=== PATIENT | female | born 1980 | race Caucasian/White ===

== ENCOUNTER → 2017-12-16 | Outpatient (CLI) | payer OTHER ==
[~2017-12-16] MED LIST: ALBU90I INH; ALBU90OI INH; AMLO5; CIPR500 PO; LISHYD1012; METO100ER; NYQUIL; OTC COUGH MED; PRED20 PO
== END | disposition home or self-care (01) ==
LOC: LAB SHORT 17:31 → LAB EV 17:31
DX: N39.0 Urinary tract infection, site not specified (principal)
CPT/HCPCS: 87086

== ENCOUNTER 2018-10-30 18:22 | Emergency (ER) | payer OTHER ==
[~2018-10-30] VITALS: Ht 165.1 cm; Wt 113.4 kg
[2018-10-30 19:23] LABS: BASOPHILS ABSOLUTE AUTO 0.09 K/mm3 (0.00-0.23); BASOPHILS PERCENT AUTO 1 % (0-2); EOSINOPHILS ABSOLUTE AUTO 0.22 K/mm3 (0.00-0.68); EOSINOPHILS PERCENT AUTO 2 % (0-6); Hematocrit 45.7 % (33.0-51.0); IMMATURE GRAN ABSOLUTE AUTO 0.05 K/mm3 (0.00-0.10); IMMATURE GRAN PERCENT AUTO 0 % (0-1); LYMPHOCYTES ABSOLUTE AUTO 3.27 K/mm3 (0.84-5.20); LYMPHOCYTES PERCENT AUTO 24 % (21-46); MONOCYTES ABSOLUTE AUTO 1.35 K/mm3 (0.16-1.47); MONOCYTES PERCENT AUTO 10 % (4-13); Mean Corpuscular HGB 28.5 pg (26.0-34.0); Mean Corpuscular HGB Conc 32.8 g/dL (31.5-36.5); Mean Platelet Volume 9.6 fL (9.1-12.4); NEUTROPHILS ABSOLUTE AUTO 8.77 K/mm3 (1.96-9.15); NEUTROPHILS PERCENT AUTO 64 % (41-73); Platelet Count 366 K/mm3 (150-400); RDW Coefficient Variation 13.3 % (11.7-14.2); RDW Standard Deviation 42.2 fL (35.1-46.3); Red Blood Cell Count 5.26 M/mm3 (3.80-5.20); White Blood Cell Count 13.75 K/mm3 (4.00-11.30)
[2018-10-30 19:34] LABS: Mean Corpuscular Volume 87 fL (80-100)
[2018-10-30 19:37] LABS: Source, Urine Clean Catch
[2018-10-30 19:40] LABS: Alanine Aminotransfer (ALT/SGP 63 U/L (12-78); Albumin, Blood 4.1 g/dL (3.4-5.0); Alk Phos 75 U/L (50-136); Anion Gap 7 mmol/L (6-16); Aspartate Aminotrans (AST/SGOT 44 U/L (12-37); Bilirubin, Total 0.2 mg/dL (0.1-1.0); Blood Urea Nitrogen 8 mg/dL (8-24); Bun/Creatinine Ratio 13.4 (12.0-20.0); CO2, Blood 26 mmol/L (21-32); Calcium, Blood 9.5 mg/dL (8.5-10.1); Chloride, Blood 104 mmol/L (98-108); Globulin, Blood 4.2 g/dL (2.2-4.0); Glomerular Filtration Rate >60 (60-); Glucose, Blood 103 mg/dL (70-99); Potassium, Blood 4.1 mmol/L (3.5-5.5); Sodium, Blood 137 mmol/L (136-145); Total Protein, Blood 8.3 g/dL (6.4-8.2)
[2018-10-30 19:41] LABS: Bilirubin, Urine Neg (Neg); Blood, Urine Neg (Neg); Glucose Qualitative, Urine Neg (Neg); Ketones, Urine Neg (Neg); Leukocyte Esterase, Urine 1+ (Neg); Nitrite, Urine Neg (Neg); Protein, Urine Neg (Neg); Urobilinogen, Urine NORM (Normal)
[2018-10-30 19:47] LABS: Appearance, Urine Clear (Clear); Color, Urine Yellow (P-Yellow)
[2018-10-30 19:48] LABS: Bacteria Few /hpf; Red Blood Cells, Urine 0-2 /hpf (0-2); Squamous Epithelial Cells Many /hpf (Few); White Blood Cells, Urine 0-2 /hpf (0-5)
[2018-10-30] MEDS ORDERED: Levothyroxine137 MCG PO (21:25)
[2018-10-30] MEDS ORDERED: ZESTORETIC 20-121 EA (21:25)
[2018-10-30] MEDS ORDERED: CEFP200 PO (21:28)
== END 2018-10-30 21:54 | disposition home or self-care (01) ==
LOC: ER 18:22
PROVIDERS: Physician Assistant
DX: N12 Tubulo-interstitial nephritis, not specified as acute or chronic (principal); I10 Essential (primary) hypertension; E11.9 Type 2 diabetes mellitus without complications; J45.909 Unspecified asthma, uncomplicated; F17.210 Nicotine dependence, cigarettes, uncomplicated; Z79.899 Other long term (current) drug therapy
CPT/HCPCS: 36415; 80053; 81001; 83690; 84443; 85025; 87086; 99283; A9270-GY

== ENCOUNTER → 2018-12-28 | Outpatient (CLI) | payer OTHER ==
[~2018-12-28] MED LIST changes: +CEFP200 PO; +Levothyroxine137 MCG PO; +METF500 PO; +METOPROLOL SUCC25 MG PO; +Ranitidine HCl150 M1 PO; +VITAMIN D5000 UNI1 PO; +Vitamin C100 M1 PO; +ZESTORETIC 20-121 EA
== END | disposition home or self-care (01) ==
LOC: LAB SHORT 14:06 → LAB EV 14:06
DX: L72.3 Sebaceous cyst (principal)
CPT/HCPCS: 87070; 87075; 87205

== ENCOUNTER 2019-01-08 06:33 | Day surgery (SDC) | payer OTHER ==
[~2019-01-08] VITALS: Ht 160 cm; Wt 129.0 kg
[~2019-01-08 06:33] MED LIST changes: -METF500 PO; -METOPROLOL SUCC25 MG PO; -Ranitidine HCl150 M1 PO; -VITAMIN D5000 UNI1 PO; -Vitamin C100 M1 PO
[2019-01-08] MEDS ORDERED: METOPROLOL SUCC25 MG PO (06:51)
[2019-01-08] MEDS ORDERED: VITAMIN D5000 UNI1 PO (06:52)
[2019-01-08] MEDS ORDERED: Ranitidine HCl150 M1 PO (06:52)
[2019-01-08] MEDS ORDERED: METF500 PO (06:52)
[2019-01-08] MEDS ORDERED: Vitamin C100 M1 PO (06:54)
--- NOTE | 2019-01-08 08:45 | NUR ---
DISCHARGE PT REMAINED A&OX3 AND DENIED ANY QUESTIONS DURING RECOVERY. PT ABLE TO SWALLOW WATER WITH EASE AND DRESSED SELF INDEPENDANTLY. IV DC'D WITH CANULA IN TACT. DISCHARGE EDUCATION GIVEN TO PT AND MOTHER. PT AND MOTHER VERBALLY STATED THE UNDERSTANDING OF THE DISCHARGE EDUCATION AND DENIED ANY QUESTIONS AT THIS TIME. PT WALKED OUT WITH MOTHER.
== END 2019-01-08 22:50 | disposition home or self-care (01) ==
LOC: MHTC 06:33
DX: I45.81 Long QT syndrome (principal); I34.0 Nonrheumatic mitral (valve) insufficiency; I11.9 Hypertensive heart disease without heart failure; F17.210 Nicotine dependence, cigarettes, uncomplicated; E03.9 Hypothyroidism, unspecified; E66.01 Morbid (severe) obesity due to excess calories; F41.8 Other specified anxiety disorders
CPT/HCPCS: 82947; 93312; 93325; 99152; J2250; J3010; J7030

== ENCOUNTER → 2019-02-20 | Outpatient (CLI) | payer OTHER ==
[~2019-02-20] MED LIST changes: +METF500 PO; +METOPROLOL SUCC25 MG PO; +Ranitidine HCl150 M1 PO; +VITAMIN D5000 UNI1 PO; +Vitamin C100 M1 PO
== END | disposition home or self-care (01) ==
LOC: LAB SHORT 15:30 → LAB EV 15:30
DX: L03.114 Cellulitis of left upper limb (principal)
CPT/HCPCS: 87070; 87077; 87147; 87186; 87205

== ENCOUNTER → 2019-04-19 | Outpatient (CLI) | payer OTHER | LOC: LAB SHORT 13:37 → LAB EV 13:37 | DX: Z09 Encounter for follow-up examination after completed treatment for conditions other than malignant neoplasm (principal); Z86.14 Personal history of Methicillin resistant Staphylococcus aureus infection ==